=== PATIENT | female | born 1970 | race Caucasian/White ===

== ENCOUNTER 2016-11-11 00:43 | Emergency (ER) | payer MEDICARE ==
[~2016-11-11 00:43] MED LIST: ?BP MED PO; AFRIN NASAL SPR15 ML; ALBUTEROL17 GM INH; ALDACTONE25 MG PO; ALPRAZOLAM PO; ANTI-DIARRHEAL2 M1 PO; ANTIVERT PO; APIDRA (NF100 UNITS/ SUBQ; ASPIRIN325 M1 PO; BACLOFEN10 MG PO; CHEWABLE ASPIRI81 MG; CIPRO PO; CLINDAMYCIN HC300 MG PO; DAYPRO600 M1 PO; DICLOFENAC PO; DICLOFENAC SODI50 MG PO; FLONASE 0.05% N16 G1; FLONASE16 GM; GLUCOPHAGE XR500 MG PO; GLUCOTROL10 MG PO; HALDOL0.5 MG PO; HCTZ PO; HUMALOG100 U/M2 SUBQ; HUMALOG100 UNIT/2 SUBQ; HYDROCODON-ACE1 EAC5 PO; HYDROCORTISONE30 G2 EXT; K-DUR10 MEQ PO; KEFLEX500 MG PO; LANTUS100 U/ML SUBQ; LANTUS100 UNITS/ SUBQ; LASIX20 MG PO; LISINOPRIL10 MG PO; LISINOPRIL5 MG PO; LOPRESSOR PO; LORTAB 10-3251 EACH PO; LORTAB 7.5-5001 TAB PO; LOTREL PO; LOW DOSE ASPIRI81 M2 PO; MAGIC MOUTHWASH PO; MOTION SICKNESS25 M4 PO; NAPROXEN PO; NEURONTIN300 MG PO; NEXIUM PO; NORCO 10/3251 TAB DOB; NORCO 5/325 TAB1 TAB PO; NYSTATIN15 GM OINT TOP; PEPCID40 MG PO; PRILOSEC2.5 MG; PRILOSEC20 M1 PO; PRILOSEC20 MG PO; PRINIVIL20 M1 PO; PROAIR HFA8.5 GM INH; PYRIDIUM PO; ROBAXIN PO; ROBAXIN500 MG PO; SILVADENE TOP; SINGULAIR PO; SPIRONOLACTONE-1 TAB PO; SPIRONOLACTONE/1 TAB PO; SYNTHROID25 MCG PO; TOPROL XL PO; TRADJENTA5 MG PO; TRIAMCINOLONE A15 G2 TOP; VICODIN 5/1 TAB 5/50 PO; VITAMIN B12-FO1 EACH PO; XANAX0.5 MG PO; ZANAFLEX PO; ZITHROMAX PO; ZOCOR PO; ZYRTEC10 M2 PO; [UNRECOGNIZED DRUG - REMARK] PO
== END 2016-11-11 01:28 | disposition home or self-care (01) ==
LOC: SED 00:43
DX: G24.09 Other drug induced dystonia (principal); T43.4X5A Adverse effect of butyrophenone and thiothixene neuroleptics, initial encounter; I10 Essential (primary) hypertension; E11.9 Type 2 diabetes mellitus without complications; M19.90 Unspecified osteoarthritis, unspecified site; Z88.2 Allergy status to sulfonamides; Z88.0 Allergy status to penicillin; Z79.899 Other long term (current) drug therapy; Y92.9 Unspecified place or not applicable
CPT/HCPCS: 99283

== ENCOUNTER 2016-12-18 19:06 | Inpatient (IN) | payer MEDICARE ==
--- NOTE | ~2016-12-18 | CO ---
Unit #: [id number] #: [id number] Patient: MARGIE TOLENTINO [id number] [address] [place], [place] [address] [id number] Cyrus MR#: [id number] NAME: MARGIE TOLENTINO ROOM: 342 Age: 46 Sex: F Admission Date: 12/18/2016 : 1970 Attending Physician: Zoila Carrillo M.D. Primary Care Physician: Siddharth Nowak M.D. Consultation Date: 12/19/2016 CONSULTATION REPORT REASON FOR CONSULT Management of diabetes mellitus. HISTORY OF PRESENT ILLNESS This is a 46-year-old female with a history of multiple medical problems who has been admitted with nausea and abdominal discomfort. On our evaluation, she was found to be in acute renal failure and metabolic acidosis. Ammonia level of fifties to sixties. Her blood sugars are high. I have been asked to see the patient for management of her diabetes mellitus. PAST MEDICAL HISTORY Type 2 diabetes mellitus, morbid obesity, Tourette syndrome, anxiety, depression, hypothyroidism. PAST SURGICAL HISTORY , tonsillectomy. SOCIAL HISTORY No history of drug abuse, alcohol or illicit drugs. FAMILY HISTORY Noncontributory. ALLERGIES Naproxen, penicillin, sulfa drugs. HOME MEDICATION List is reviewed. Supposedly, Tradjenta 5 mg mg daily. Supposed to be taking insulin, Lantus, 45 units at bedtime and Humalog 10 units with meals but the patient has not been taking it. REVIEW OF SYSTEMS A 12-point review of system was completed, remarkable for nausea and some abdominal discomfort, high blood sugars. The rest of the review of systems was unremarkable. PHYSICAL EXAMINATION GENERAL APPEARANCE: She looks comfortable, no respiratory distress, afebrile, hemodynamically stable. HEENT: EOMI. Pupils equally react to light. NECK: Supple. No thyromegaly noted. CHEST: Good air entry. Unit #: [id number] #: [id number] Patient: MARGIE TOLENTINO CARDIOVASCULAR: Regular rhythm. ABDOMEN: Mild tenderness in the epigastric area. Bowel sounds positive. No guarding, rigidity noted. EXTREMITIES: No edema, ulcers, amputation noted. NEUROLOGIC: Nonfocal, moving all extremities. SKIN: No rash. DIAGNOSTIC STUDIES LABORATORY: Reviewed. Creatinine is 2.3, sodium 134. Recent A1Cs not available. ASSESSMENT 1. Type 2 diabetes mellitus uncontrolled. 2. Acute kidney injury. 3. History of chronic kidney disease. 4. Morbid obesity. 5. Tourette syndrome. PLAN Start patient on Levemir 30 units at bedtime, NovoLog 8 units each meal, consistent carb diet, get Nutrition consult, discuss with the patient at length about lifestyle modifications and weight loss. Thanks again for consultation. Dictated by... Eulogio Beal/josé miguel TD: 12/21/2016 08:13 JOB #: [id number] CONSULTATION REPORT Page 1 of 1 X Dolores Salmon MD X CONSULTATION REPORT
--- NOTE | ~2016-12-18 | CT71 ---
[facility] A Service of [facility] RADIOLOGY TEXT RESULTS PATIENT: MARGIE TOLENTINO LOCATION: [facility] 342-01 : [birth year] UNIT #: [id number] AGE: [address]: Zoila Carrillo MD SEX: F ORDER DR: [id number] [facility] [address] [facility]. [place], [place] [address] [id number] I MR#: [id number] #: [id number] NAME: MARGIE TOLENTINO : 1970 SEX: F STUDY DATE/TIME: 12/18/2016 20:46 UNIT: CEDOF ROOM: [id number] STUDY DESCRIPTION: CT Head Wo Contrast Attending Physician: Zoila Carrillo M.D. Ordering Physician: Chrissy Kowalski M.D. Primary Care Physician: Siddharth Nowak M.D. MEDICAL IMAGING REPORT This report is preliminary unless electronic signature is present EXAM CT brain without contrast HISTORY Weakness and shaking for [address] exam was performed with one or more of the following radiation dose reduction techniques: automatic exposure control, adjustment of mA and/or kV according to patient size, and iterative reconstruction. FINDINGS CT brain without contrast is limited by motion. No intracranial hemorrhage, mass or edema is identified. No midline shift or ventricular dilatation or extraaxial fluid collection is identified. No focal atrophy. IMPRESSION No abnormalities identified. Exam sensitivity is partly limited by motion. Dictated by... Sunil Toro M.D. THIS IS AN ELECTRONICALLY VERIFIED REPORT Sunil Toro M.D. at 12/19/2016 5:15 PM DEB/claudio TD: 12/19/2016 01:56 JOB #: [id number] MEDICAL IMAGING REPORT Page 1 of 1 COPY
--- NOTE | ~2016-12-18 | EKG ---
PATIENT: MARGIE TOLENTINO UNIT #: [id number] Ventricular Rate: 73 BPM Atrial Rate: 73 BPM P-R Interval: 164 ms QRS Duration: 82 ms Q-T Interval: 380 ms QTC Calculation(Bezet): 418 ms P [place]: 26 degrees Calculated R [place]: 23 degrees Calculated T [place]: 34 degrees Diagnosis Line: Normal sinus rhythm Diagnosis Line: Low voltage QRS Diagnosis Line: Normal ECG Diagnosis Line: When compared with ECG of 21-AUG-2016 20:40, Diagnosis Line: No significant change was found Diagnosis Line: Confirmed by ANGEL LUTZ MD ([id number]) on 12/20/2016 Diagnosis Line: 9:49:50 AM INTERPRETING MD: BOLIVAR SOLIZ
--- NOTE | ~2016-12-18 | US77 ---
[facility] A Service of [facility] RADIOLOGY TEXT RESULTS PATIENT: MARGIE TOLENTINO LOCATION: [facility] 342-01 : [birth year] UNIT #: [id number] AGE: [address]: Zoila Carrillo MD SEX: F ORDER DR: [id number] [facility] [address] [facility]. [place], [place] [address] [id number] I MR#: [id number] Acc #: [id number] NAME: MARGIE TOLENTINO : 1970 SEX: F STUDY DATE/TIME: 12/20/2016 16:32 UNIT: [address] ROOM: [facility] STUDY DESCRIPTION: US Kidney Bilateral Complete Attending Physician: Zoila Carrillo M.D. Ordering Physician: [facility] Primary Care Physician: Siddharth Nowak M.D. MEDICAL IMAGING REPORT This report is preliminary unless electronic signature is present EXAM Bilateral renal ultrasound HISTORY Acute renal insufficiency. FINDINGS Ultrasound examination of both kidneys demonstrates no hydronephrosis or renal mass. Limited sensitivity in evaluating the kidneys due to large patient size. Survey of the urinary bladder is unremarkable. IMPRESSION No hydronephrosis. No renal mass is identified, although sensitivity is limited by large patient size. Dictated by... Sunil Toro M.D. THIS IS AN ELECTRONICALLY VERIFIED REPORT Sunil Toro M.D. at 12/20/2016 11:29 PM DFL/pcl TD: 12/20/2016 20:51 JOB #: [id number] MEDICAL IMAGING REPORT Page 1 of 1 COPY
--- NOTE | ~2016-12-18 | HP ---
Unit #: [id number] #: [id number] Patient: MARGIE GALVAN [id number] [address] [address] [id number] I MR#: [id number] NAME: MARGIE GALVAN ROOM: 342 Age: 46 Sex: F Admission Date: 12/18/2016 : 1970 Attending Physician: Zoila Carrillo M.D. Primary Care Physician: Siddharth Nowak M.D. HISTORY AND PHYSICAL ADMISSION DIAGNOSES 1. Questionable hepatic encephalopathy. 2. Acute renal failure on chronic kidney disease with metabolic acidosis. 3. Morbid obesity. 4. Hypertension. 5. Diabetes. HISTORY OF PRESENT ILLNESS Ms. Margie Galvan is a 46-year-old female with a past medical history of diabetes, hypertension, dyslipidemia, and questionable hepatic encephalopathy, who comes to the emergency room with complaints of upper extremity tremors along with some nausea and abdominal discomfort. Initial evaluation found her with an ammonia level in the 50s and 60s. She is also in acute on chronic renal failure with today's BUN and creatinine 37 and 1.9, along with metabolic acidosis with bicarb of 18. She denied any prior diagnosis of any type of hepatitis or cirrhosis, denied any fever or chills, denied any headache, dizziness, chest pain, or shortness of air, denied any syncopal episodes, and denied any blood transfusions in the past. So a 12-point review of system on this patient is basically negative except as above. PAST MEDICAL HISTORY 1. Hypertension. 2. Diabetes. 3. Anxiety. 4. Depression. 5. Tourette syndrome. 6. Hypothyroidism. 7. Mild asthma. PAST SURGICAL HISTORY 1. section. 2. Tonsillectomy. 3. Hand surgery. 4. Varicose vein surgery on the left leg. HOME MEDICATIONS 1. Baby aspirin. 2. Lisinopril 20 mg daily. 3. Lopressor 50 mg daily. 4. Neurontin 400 mg t.i.d. 5. Xanax 0.5 mg b.i.d. 6. [place] 10 t.i.d. p.r.n. 7. Zyrtec daily. Unit #: [id number] #: [id number] Patient: RANDA,MARGIE HE 8. Singulair daily. 9. ProAir inhaler. 10. Flonase nasal spray. 11. Meclizine 25 mg t.i.d. 12. Lasix 20 mg daily. 13. K-Dur 10 mEq daily. 14. Aldactone 25 mg daily at bedtime. 15. Tradjenta 5 mg daily. 16. Subcutaneous Humalog and Lantus 45 units at bedtime. 17. Celebrex 100 mg daily. ALLERGIES Naprosyn, penicillin, and sulfa. SOCIAL HISTORY No history of tobacco, alcohol, or illicit drugs. FAMILY HISTORY Unremarkable. PHYSICAL EXAMINATION GENERAL: Patient is a 46-year-old, morbidly obese, female in no acute distress. VITAL SIGNS: Blood pressure 155/84, heart rate 105, respirations 18, and temperature 98.4. HEENT: Head is atraumatic. Pupils equal, round, and reactive to light and accommodation. Extraocular muscles intact. Oropharynx clear. NECK: Supple. No mass, no JVD, and no bruits. CHEST: Diminished bilaterally. CARDIOVASCULAR: S1 and S2. No murmurs. ABDOMEN: Obese, soft, nontender, and nondistended. Bowel sounds are diminished. LOWER EXTREMITIES: Without any significant cyanosis, clubbing, or edema. NEUROLOGIC: Grossly intact without any focal deficits. She does have some upper extremity tremors. DIAGNOSTIC STUDIES LABORATORY: Urinalysis with 1+ leukocyte esterase. Chemistry with BUN and creatinine 37 and 1.9 and blood glucose 252. PT-INR 11.6 and 1.1. White count 7 and hemoglobin and hematocrit 13.9 and 40[address]6. IMAGING: CT head negative. ASSESSMENT AND PLAN 1. Questionable hepatic encephalopathy. Continue lactulose and Xifaxan per Gastroenterology. Follow up on the right upper quadrant ultrasound. 2. Acute renal failure on chronic kidney disease with metabolic acidosis. Will hold lisinopril, Lasix, and Aldactone. Will consult Nephrology. Continue IV hydration. 3. Insulin-dependent diabetes. Will resume home insulin regime. Dr. Salmon to follow. 4. Upper extremity tremors most likely secondary to metabolic myoclonic jerks. Gastroenterology asked for Neurology evaluation. Expected to improve with her renal function improvement. 5. Morbid obesity. 6. Hypertension. 7. Gastrointestinal and deep venous thrombosis prophylaxis with some Unit #: [id number] #: [id number] Patient: MARGIE GALVAN Pepcid and sequential compression devices. 1. Dictated by Eulogio Damico/selma TD: 12/19/2016 21:18 JOB #: [id number] HISTORY AND PHYSICAL Page 1 of 1 X Josué Jefferson MD X HISTORY AND PHYSICAL
--- NOTE | ~2016-12-18 | DS ---
Unit #: [id number] #: [id number] Patient: MARGIE TOLENTINO [id number] [address] [place], [place] [address] [id number] I MR#: [id number] NAME: MARGIE TOLENTINO ROOM: 342 Age: 46 Sex: F Admission Date: 12/18/2016 : 1970 Discharge Date: 12/21/2016 Attending Physician: Zoila Carrillo M.D. Primary Care Physician: Siddharth Nowak M.D. DISCHARGE SUMMARY DISCHARGE DIAGNOSES 1. Questionable hepatic encephalopathy with altered mental status, which is resolved. Ammonia level is down status post evaluation per GI. Unclear final diagnosis of hepatic encephalopathy. Liver ultrasound unremarkable. 2. Acute kidney injury on chronic kidney disease. Discharge BUN and creatinine 24 and 1.6, status post evaluation per nephrology. Stable from nephrology standpoint to be discharged. Holding Lasix, Aldactone and lisinopril for now. 3. Morbid obesity. Counseled on the importance of losing weight. 4. Diabetes. Currently stable. 5. Hypertension. Stable. DISCHARGE MEDICATIONS 1. Proventil inhaler 2 puffs b.i.d. 2. Flonase nasal spray daily. 3. Meclizine 25 mg t.i.d. p.r.n. vertigo. 4. Zyrtec 10 mg daily. 5. Home dose of Xanax 0.5 mg b.i.d. 6. Lopressor 50 mg p.o. daily. 7. Tradjenta 5 mg p.o. q.a.m. 8. Lantus 45 units subcutaneous at bedtime previous home dose, now changed to 30 units subcutaneous at bedtime. 9. Humalog 8 units subcutaneous t.i.d. with meals and sliding scale. 10. Singulair 10 mg daily. 11. Aspirin 81 mg daily. 12. [place] 10/325 mg 1 tablet t.i.d. p.r.n. pain. 13. Holding K-Dur, Celebrex, Aldactone, Lasix, lisinopril from the previous home medications. PHYSICAL EXAMINATION VITALS: At discharge blood pressure 114/71. CONSULTANTS Dr. Antonio, GI. Dr. Amee Saeed, nephrology. DIAGNOSTIC DATA IMAGING: CT head negative. Abdominal ultrasound unremarkable. Renal ultrasound unremarkable. Unit #: [id number] #: [id number] Patient: MARGIE TOLENTINO LABORATORY: Ammonia level 34. HISTORY OF PRESENT ILLNESS/HOSPITAL COURSE Please refer to history and physical done by me for initial presentation for this patient. Altered mental status: Questionable hepatic encephalopathy. On admission ammonia level was elevated at 60-80. We treated with some lactulose and the patient was started on Xifaxan per GI. However, her mental status improved currently to baseline. CT negative. No clinical evidence of liver cirrhosis per GI. Therefore, discontinuing lactulose and Xifaxan. Monitor closely. Outpatient followup with GI. Acute kidney injury on chronic kidney disease: Status post evaluation per nephrology. Holding the above medications. Continue to avoid nephrotoxic medications. Discharge day BUN and creatinine 24 and 1.6. Again, status post evaluation per nephrology. Stable to be discharged with outpatient followup. Morbid obesity: As above. Counseled on the importance of losing weight. Diabetes: Currently stable. Continue current diabetes management. Discharge medications as above. Hypertension: Stable. DISPOSITION Discharge home. Status post evaluation by physical therapy and occupational therapy. No further rehab needed. FOLLOWUP Follow up with primary care physician and GI as an outpatient. Dictated by... Josué Jefferson M.D. OC/gz TD: 12/22/2016 06:57 JOB #: [id number] DISCHARGE SUMMARY Page 1 of 1 X Josué Jefferson MD X DISCHARGE SUMMARY
--- NOTE | ~2016-12-18 | BMI ---
[facility] Nutrition Therapy DATE: 12/20/16 Patient: MARGIE CUTLER RANDA Physician: VIELKA Address: [address] [place] [address] Room/Bed: [address] [place] [address], Zip: [place] [address] Admit Date: 12/18/16 Date of : [birth year] Height: 5 3 Weight: 293 133 HIGH BMI NOTE: ANTHROPOMETRICS: HT: 63" WT: 133 KG BMI: 51.9 INTERVENTION: 1. 45 GRAM CHO DIET RECOMMENDATIONS: 1. ADD HEART HEALTHY TO CURRENT DIET ORDER TO PROMOTE GRADUAL WEIGHT LOSS TOWARDS HEALTHY BMI RANGE. Respectfully, ALMA ROSA [address], LD [employer] [facility] cc: client file
--- NOTE | ~2016-12-18 | US6 ---
[facility] A Service of [facility] RADIOLOGY TEXT RESULTS PATIENT: MARGIE TOLENTINO LOCATION: [facility] 342-01 : [birth year] UNIT #: [id number] AGE: [address]: Zoila Carrillo MD SEX: F ORDER DR: [id number] [facility] [address] [facility]. [place], [place] [address] [id number] I MR#: [id number] Acc #: [id number] NAME: MARGIE TOLENTINO : 1970 SEX: F STUDY DATE/TIME: 12/19/2016 17:04 UNIT: [address] ROOM: Replaced by [facility] STUDY DESCRIPTION: US Abdominal Limited Attending Physician: Zoila Carrillo M.D. Ordering Physician: Zoila Carrillo M.D. Primary Care Physician: Siddharth Nowak M.D. MEDICAL IMAGING REPORT This report is preliminary unless electronic signature is present EXAM Right upper quadrant ultrasound HISTORY Right upper quadrant pain, nausea, vomiting for 1 day. FINDINGS Ultrasound examination of the right upper quadrant demonstrates hyperechoic coarsened hepatic echotexture compatible with fatty infiltration of the liver. No hepatic mass or biliary dilatation. Probable gallbladder sludge. No definite gallstones. No gallbladder distension or gallbladder wall thickening. Evaluation of the right kidney demonstrates no hydronephrosis or renal mass. The common bile duct measures 4 mm in diameter. The partly visualized pancreas is unremarkable. No ascites. IMPRESSION No acute findings. Probable fatty infiltration of the liver. Probable small amount of echogenic sludge in the gallbladder. No gallstones or biliary dilatation or gallbladder distension. Dictated by... Sunil Toro M.D. THIS IS AN ELECTRONICALLY VERIFIED REPORT Sunil Toro M.D. at 12/19/2016 11:16 PM DFL/yuko TD: 12/19/2016 22:15 JOB #: [id number] [facility] A Service of [facility] RADIOLOGY TEXT RESULTS PATIENT: MARGIE TOLENTINO LOCATION: [facility] 342-01 : [birth year] UNIT #: [id number] AGE: [address]: Zoila Carrillo MD SEX: F ORDER DR: MEDICAL IMAGING REPORT Page 1 of 1 COPY
[2016-12-18 20:20] LABS: URINE SOURCE CLEAN CATCH
[2016-12-18 20:31] LABS: URINE APPEARANCE CLEAR; URINE BILIRUBIN NEG (NEG); URINE BLOOD NEG (NEG); URINE COLOR YELLOW; URINE GLUCOSE NEG (NEG); URINE KETONE NEG (NEG); URINE LEUKOCYTE ESTERASE 1+ (NEG); URINE NITRATE NEG (NEG); URINE PROTEIN NEG (NEG); URINE SPECIFIC GRAVITY 1.016 (1.003-1.035)
[2016-12-18 20:32] LABS: BASOPHIL# 0.1 X10e3 (0-0.3); BASOPHIL% 0.9 % (0-2.5); EOSINOPHIL# 0.1 X10e3 (0-0.7); EOSINOPHIL% 1.9 % (0.0-7.0); HEMATOCRIT 39.5 % (35.0-45.0); HEMOGLOBIN 13.6 gm/dL (12.0-16.0); LYMPHOCYTE# 2.3 X10e3 (1.0-3.5); LYMPHOCYTE% 36.6 % (17.0-45.0); MEAN CORPUSCULAR HEMOGLOBIN 34.5 PG (28-34); MEAN CORPUSCULAR HGB CONC 34.5 g/dL (30-36); MEAN PLATELET VOLUME 8.8 FL (6.5-11.5); MONOCYTE# 0.6 X10e3 (0-1.0); MONOCYTE% 9.3 % (3.0-12.0); NEUTROPHIL# 3.3 X10e3 (1.5-7.1); NEUTROPHIL% 51.3 % (40-75); PLATELET COUNT 124 X10e3 (140-420); RED BLOOD COUNT 3.95 X10e (3.90-5.30); RED CELL DISTRIBUTION WIDTH 14.1 % (11.0-15.5); WHITE BLOOD COUNT 6.4 X10e3 (4.0-10.5)
[2016-12-18 20:34] LABS: URBCS1 AUWI 0-2 /[HPF] (0-2); URINE BACTERIA AUWI NEG (NEGATIVE); URINE SQUAMOUS EPITHELIAL CELL OCC /[HPF]
[2016-12-18 20:35] LABS: POC - CKMB 5.4 ng/mL (0.0-7.9); POC - TROPONIN <0.05 ng/mL (<=0.05)
[2016-12-18 20:35] LABS: DIFF IND NO
[2016-12-18 20:36] LABS: CULTURE INDICATED? NO
[2016-12-18 20:45] LABS: AMPHETAMINE NEG (NEG); BARBITURATES NEG (NEG); BENZODIAZEPINES POS (NEG); COCAINE NEG (NEG); MARIJUANA NEG (NEG); OPIATES POS (NEG); TRICYCLIC ANTIDEPRESSANTS NEG (NEG); U METHADONE NEG (NEG)
[2016-12-18 20:47] LABS: INR 1.1; PROTHROMBIN TIME (PATIENT) 11.6 SECONDS (9.6-11.5)
[2016-12-18 20:57] LABS: BUN/CREATININE RATIO 17.82; CALCIUM SERUM 9.8 mg/dL (8.4-10.2); CREATININE SERUM 2.3 mg/dL (0.6-1.4); GLOM FILT RATE Estimated 24.5 mL/min (>60); POTASSIUM 4.9 mmol/L (3.5-5.1)
[2016-12-18] MEDS ORDERED: CELEBREX PO (23:18)
[2016-12-19 00:07] LABS: ALBUMIN SERUM 4.1 g/dL (3.5-5.0); BILIRUBIN, DIRECT 0.3 mg/dL (0.0-0.2); BILIRUBIN,INDIRECT 1.1 mg/dL (0.0-0.9); BILIRUBIN,TOTAL 1.4 mg/dL (0.2-2.0); PROTEIN TOTAL SERUM 7.9 g/dL (6.0-8.3)
[2016-12-19 05:53] LABS: BASOPHIL# 0.1 X10e3 (0-0.3); BASOPHIL% 1.1 % (0-2.5); EOSINOPHIL# 0.1 X10e3 (0-0.7); EOSINOPHIL% 1.4 % (0.0-7.0); HEMATOCRIT 40.6 % (35.0-45.0); HEMOGLOBIN 13.9 gm/dL (12.0-16.0); LYMPHOCYTE% 42.6 % (17.0-45.0); MEAN CELL VOLUME 101.3 FL (83-96); MEAN CORPUSCULAR HEMOGLOBIN 34.8 PG (28-34); MEAN CORPUSCULAR HGB CONC 34.3 g/dL (30-36); MEAN PLATELET VOLUME 8.9 FL (6.5-11.5); MONOCYTE# 0.7 X10e3 (0-1.0); MONOCYTE% 9.7 % (3.0-12.0); NEUTROPHIL# 3.2 X10e3 (1.5-7.1); NEUTROPHIL% 45.2 % (40-75); PLATELET COUNT 118 X10e3 (140-420); RED BLOOD COUNT 4.01 X10e (3.90-5.30); RED CELL DISTRIBUTION WIDTH 13.7 % (11.0-15.5)
[2016-12-19 05:57] LABS: DIFF IND NO
[2016-12-19 06:36] LABS: ALBUMIN SERUM 4.2 g/dL (3.5-5.0); BILIRUBIN,TOTAL 1.9 mg/dL (0.2-2.0); BUN/CREATININE RATIO 19.47; CALCIUM SERUM 9.6 mg/dL (8.4-10.2); CREATININE SERUM 1.9 mg/dL (0.6-1.4); GLOM FILT RATE Estimated 30.9 mL/min (>60); POTASSIUM 4.9 mmol/L (3.5-5.1); PROTEIN TOTAL SERUM 7.8 g/dL (6.0-8.3)
[2016-12-20 05:55] LABS: BASOPHIL# 0.1 X10e3 (0-0.3); EOSINOPHIL# 0.1 X10e3 (0-0.7); EOSINOPHIL% 1.8 % (0.0-7.0); HEMATOCRIT 35.2 % (35.0-45.0); HEMOGLOBIN 12.1 gm/dL (12.0-16.0); LYMPHOCYTE# 2.3 X10e3 (1.0-3.5); MEAN CELL VOLUME 99.9 FL (83-96); MEAN CORPUSCULAR HEMOGLOBIN 34.5 PG (28-34); MEAN CORPUSCULAR HGB CONC 34.5 g/dL (30-36); MEAN PLATELET VOLUME 8.2 FL (6.5-11.5); MONOCYTE# 0.5 X10e3 (0-1.0); MONOCYTE% 9.6 % (3.0-12.0); NEUTROPHIL# 2.1 X10e3 (1.5-7.1); NEUTROPHIL% 41.6 % (40-75); PLATELET COUNT 99 X10e3 (140-420); RED BLOOD COUNT 3.52 X10e (3.90-5.30); RED CELL DISTRIBUTION WIDTH 13.7 % (11.0-15.5); WHITE BLOOD COUNT 5.1 X10e3 (4.0-10.5)
[2016-12-20 05:57] LABS: DIFF IND NO
[2016-12-20 07:10] LABS: ALBUMIN SERUM 3.7 g/dL (3.5-5.0); BILIRUBIN,TOTAL 1.8 mg/dL (0.2-2.0); BUN/CREATININE RATIO 17.05; CALCIUM SERUM 9.2 mg/dL (8.4-10.2); CREATININE SERUM 1.7 mg/dL (0.6-1.4); GLOM FILT RATE Estimated 35.3 mL/min (>60); POTASSIUM 5.1 mmol/L (3.5-5.1); PROTEIN TOTAL SERUM 6.6 g/dL (6.0-8.3)
[2016-12-20 10:39] LABS: CREATININE,RANDOM URINE 178 mg/dL; POTASSIUM,URINE RANDOM 92 mmol/L; SODIUM URINE RANDOM 106 mmol/L
[2016-12-21 06:28] LABS: ALBUMIN SERUM 3.8 g/dL (3.5-5.0); CALCIUM SERUM 9.3 mg/dL (8.4-10.2); CREATININE SERUM 1.6 mg/dL (0.6-1.4); POTASSIUM 4.5 mmol/L (3.5-5.1); PROTEIN TOTAL SERUM 6.7 g/dL (6.0-8.3)
[2016-12-21] MEDS ORDERED: LEVEMIR100 UNITS/ SUBQ (20:16)
[2016-12-21] MEDS ORDERED: NOVOLOG100 U/ML (20:19)
[2016-12-21] MEDS ORDERED: ACID CONTROLLER20 MG PO (20:21)
[2016-12-21] MEDS ORDERED: ANTACID650 MG PO (20:29)
[2016-12-21] MEDS ORDERED: NYSTATIN1 EAC1 TOP (20:29)
[2016-12-23 01:33] LABS: UPE RAND ALPHA1 GLOB 0 % (()); UPE RAND PROT/CREAT 41 (21-161); UPE RANDOM ALB (PNL) 100 % (()); UPE RANDOM ALPHA 2 GLOB 0 % (()); UPE RANDOM BETA GLOB 0 % (()); UPE RANDOM CREATININE 170.7 mg/dL (20-320); UPE RANDOM GAMMA GLOB 0 % (()); UPE RANDOM TOTAL PROTEIN (PNL) 7 mg/dL (5-24)
== END 2016-12-21 21:17 | disposition home or self-care (01) | DRG 683 ==
LOC: CED 19:06 → CEDOF 23:57 → C3A PCU 23:57 → CED 12-19 00:17 → CEDOF 12-19 00:17 → C3A PCU 12-19 09:16
PROVIDERS: Emergency Medicine; Hospitalist; Internal Medicine Nephrology; Physician Assistant Medical
DX: N17.9 Acute kidney failure, unspecified (principal); E87.2 Acidosis; E11.22 Type 2 diabetes mellitus with diabetic chronic kidney disease; Z68.43 Body mass index [BMI] 50.0-59.9, adult; K72.90 Hepatic failure, unspecified without coma; E11.65 Type 2 diabetes mellitus with hyperglycemia; I12.9 Hypertensive chronic kidney disease with stage 1 through stage 4 chronic kidney disease, or unspecified chronic kidney disease; N18.9 Chronic kidney disease, unspecified; Z79.4 Long term (current) use of insulin; E66.01 Morbid (severe) obesity due to excess calories; G25.3 Myoclonus; F95.2 Tourette's disorder; E03.9 Hypothyroidism, unspecified; F41.9 Anxiety disorder, unspecified; F32.9 Major depressive disorder, single episode, unspecified
CPT/HCPCS: 36415; 70450; 76705; 76770; 80048; 80053; 80076; 80307; 81003; 82140; 82150; 82553; 82570; 82947; 84133; 84156; 84166; 84300; 84484; 84703; 85025; 85610; 93005; 94640; 94664; 94760; 97163; 97167; 99285; G8978-GP; G8979-GP; G8980-GP; G8987-GO; G8988-GO; G8989-GO; J1815; J2405